=== PATIENT | male | born 1990 | race Caucasian/White ===

== ENCOUNTER → 2020-06-26 | Outpatient (CLI) | payer SELFPAY | LOC: M LABSMTC 10:48 | PROVIDERS: ATTEND Pediatrics | DX: Z20.822 Contact with and (suspected) exposure to COVID-19 (principal) ==

== ENCOUNTER → 2020-08-29 | Outpatient (REF) | payer OTHER ==
[2020-08-29 12:58] LABS: BASO % 0.5 % (0.0-1.0); EOS # 0.1 10^3/uL (0.0-0.5); EOS % 1.4 % (0.0-3.0); HEMATOCRIT 40.7 % (42.0-52.0); HEMOGLOBIN 12.8 g/dl (13.5-17.5); LYMPH # 2.3 10^3/uL (1.5-5.0); LYMPH % 35.7 % (24.0-44.0); MEAN CORPUSCULAR HEMOGLOBIN 28.4 pg (27.0-33.0); MEAN CORPUSCULAR HGB CONC 31.4 g/dl (32.0-36.5); MEAN CORPUSCULAR VOLUME 90.2 fl (80.0-96.0); MONO # 0.7 10^3/uL (0.0-0.8); MONO % 11.3 % (2.0-8.0); NEUTROPHILS # 3.3 10^3/uL (1.5-8.5); NEUTROPHILS % 50.9 % (36.0-66.0); PLATELET COUNT, AUTOMATED 337 10^3/uL (150-450); RED BLOOD COUNT 4.51 10^6/uL (4.30-6.10); WHITE BLOOD COUNT 6.5 10^3/uL (4.0-10.0)
[2020-08-29 13:48] LABS: ALBUMIN 3.1 GM/DL (3.2-5.2); BILIRUBIN,TOTAL 0.3 MG/DL (0.2-1.0); CALCIUM LEVEL 9.7 MG/DL (8.5-10.1); CHOLESTEROL RISK RATIO 13.787 (<5); CREATININE FOR GFR 1.53 MG/DL (0.70-1.30); FREE T4 0.94 NG/DL (0.76-1.46); GLOMERULAR FILTRATION RATE 56.4 (>60); POTASSIUM SERUM 4.6 MEQ/L (3.5-5.1); THYROID STIMULATING HORMONE 2.43 uIU/ML (0.358-3.740); TOTAL PROTEIN 6.5 GM/DL (6.4-8.2)
[2020-08-29 13:50] LABS: TOTAL 25(OH) VITAMIN D 12.1 NG/ML (30.0-100.0)
[2020-08-29 14:43] LABS: HEMOGLOBIN A1c 5.2 %
== END ==
LOC: M SFHCPLAZ 09:40
PROVIDERS: ATTEND Nurse Practitioner Family
DX: R53.83 Other fatigue (principal); Z13.1 Encounter for screening for diabetes mellitus; E78.5 Hyperlipidemia, unspecified; E55.9 Vitamin D deficiency, unspecified

== ENCOUNTER → 2021-01-04 | Outpatient (CLI) | payer OTHER ==
[2021-01-04 16:39] LABS: BASO % 0.4 % (0.0-1.0); EOS # 0.1 10^3/uL (0.0-0.5); EOS % 0.7 % (0.0-3.0); HEMATOCRIT 40.2 % (42.0-52.0); HEMOGLOBIN 13.1 g/dl (13.5-17.5); LYMPH # 2.3 10^3/uL (1.5-5.0); LYMPH % 27.8 % (24.0-44.0); MEAN CORPUSCULAR HEMOGLOBIN 29.2 pg (27.0-33.0); MEAN CORPUSCULAR HGB CONC 32.6 g/dl (32.0-36.5); MEAN CORPUSCULAR VOLUME 89.7 fl (80.0-96.0); MONO # 0.6 10^3/uL (0.0-0.8); MONO % 7.6 % (2.0-8.0); NEUTROPHILS # 5.2 10^3/uL (1.5-8.5); NEUTROPHILS % 63.1 % (36.0-66.0); PLATELET COUNT, AUTOMATED 344 10^3/uL (150-450); RED BLOOD COUNT 4.48 10^6/uL (4.30-6.10); WHITE BLOOD COUNT 8.2 10^3/uL (4.0-10.0)
[2021-01-04 17:18] LABS: BILIRUBIN,TOTAL 0.3 MG/DL (0.2-1.0); CALCIUM LEVEL 8.9 MG/DL (8.5-10.1); CHOLESTEROL RISK RATIO 10.285 (<5); CREATININE FOR GFR 1.58 MG/DL (0.70-1.30); GLOMERULAR FILTRATION RATE 54.4 (>60); POTASSIUM SERUM 4.9 MEQ/L (3.5-5.1); TOTAL PROTEIN 6.5 GM/DL (6.4-8.2)
[2021-01-04 17:21] LABS: TOTAL 25(OH) VITAMIN D 15.3 NG/ML (30.0-100.0)
== END ==
LOC: M PLALAB 12:55
PROVIDERS: ATTEND Nurse Practitioner Family
DX: N28.9 Disorder of kidney and ureter, unspecified (principal)

== ENCOUNTER → 2021-04-03 | Outpatient (REF) | payer OTHER ==
[2021-04-03 18:44] LABS: COMPLEMENT C3 125 MG/DL (90-180); COMPLEMENT C4 35 MG/DL (10-40)
[2021-04-03 19:31] LABS: HEPATITIS C VIRUS ABY INDEX < 0.0 INDEX (<0.8)
== END ==
LOC: M LAB REF 17:10
PROVIDERS: ATTEND Internal Medicine Nephrology
DX: N18.31 Chronic kidney disease, stage 3a (principal); R80.9 Proteinuria, unspecified; R31.9 Hematuria, unspecified

== ENCOUNTER → 2021-04-14 | Outpatient (CLI) | payer OTHER ==
--- NOTE | 2021-04-14 11:52 | REP ---
INDICATION: CKD STAGE 3A. COMPARISON: None. TECHNIQUE: Real-time sonographic evaluation of the kidneys with Doppler FINDINGS: Multiple ultrasonographic images of the right kidney show the right kidney to measure 9.7 x 5.8 x 5.8 cm. The renal cortical echotexture is mildly diffusely increased. There are no masses. There is preservation of corticomedullary differentiation. There is no hydronephrosis. There are no perinephric fluid collections. Multiple ultrasonographic images of the left kidney show the left kidney to measure 12.2 x 5.7 x 5.3 cm. The renal cortical echotexture is mildly diffusely increased. There are no masses. There is preservation of differentiation. There is no hydronephrosis. There are no perinephric fluid collections. IMPRESSION: Mildly diffusely increased renal cortical echoes suggesting medical renal disease. <Electronically signed by Kris Díaz > 04/14/21 [id number]
== END ==
LOC: M RAD 10:01
PROVIDERS: ATTEND Internal Medicine Nephrology
DX: N18.31 Chronic kidney disease, stage 3a (principal)

== ENCOUNTER → 2021-04-19 | Outpatient (REF) | payer OTHER ==
[2021-04-19 18:45] LABS: TOTAL VOLUME, URINE 2660 ML
[2021-04-19 19:33] LABS: TOTAL PROTEIN 24 HOUR URINE 9719.6 MG/24HR (50-150); URINE TOTAL PROTEIN 365.4 MG/DL (0-12)
== END ==
LOC: M LAB REF 18:14
PROVIDERS: ATTEND Internal Medicine Nephrology
DX: R80.9 Proteinuria, unspecified (principal)

== ENCOUNTER → 2021-05-15 | Outpatient (REF) | payer OTHER ==
[~2021-05-15] MED LIST: ATOR80TA59 PO; LOSA50TA28 PO; OMEP40CA4 PO
[2021-05-15 13:33] LABS: INR 0.95
[2021-05-15 13:34] LABS: PARTIAL THROMBOPLASTIN TIME 33.8 SECONDS (25.9-37.0)
== END ==
LOC: M LAB REF 13:02
PROVIDERS: ATTEND Internal Medicine Nephrology
DX: R31.9 Hematuria, unspecified (principal)

== ENCOUNTER → 2021-06-20 | Outpatient (POV) | payer OTHER ==
[~2021-06-20] VITALS: Ht 172.7 cm; Wt 116.4 kg
[~2021-06-20] MED LIST changes: -LOSA50TA28 PO; +LOSA50TA88 PO
[2021-06-20 09:05] VITALS: BP 176/102
== END ==
LOC: M IRPOV 08:57
PROVIDERS: ATTEND Radiology Diagnostic Radiology
DX: R80.8 Other proteinuria (principal)

== ENCOUNTER → 2021-06-28 | Outpatient (CLI) | payer OTHER ==
[~2021-06-28] MED LIST changes: +LIDOCAINE 1% MDV 20ML VIAL As Ordered ONE; +LOSA50TA28 PO; -LOSA50TA88 PO; +MIDAZOLAM INJ 2MG/2ML VIAL (J2250 PER 1MG) As Ordered ONE; +diphenhydrAMINE 50MG/ML VIAL (J1200) As Ordered ONE; +fentaNYL 100 MCG/2 ML INJECTION (J3010) As Ordered ONE
[2021-06-28 12:00] VITALS: BP 165/94
== END ==
LOC: M IRPRO 08:52
PROVIDERS: ATTEND Radiology Diagnostic Radiology
DX: N04.8 Nephrotic syndrome with other morphologic changes (principal); R80.9 Proteinuria, unspecified; Z79.899 Other long term (current) drug therapy
CPT/HCPCS: 50200; 77012; 88300; 99152; 99153; J1200; J2250; J3010

== ENCOUNTER → 2022-02-16 | Outpatient (CLI) | payer OTHER ==
[~2022-02-16] MED LIST changes: -LIDOCAINE 1% MDV 20ML VIAL As Ordered ONE; -MIDAZOLAM INJ 2MG/2ML VIAL (J2250 PER 1MG) As Ordered ONE; -diphenhydrAMINE 50MG/ML VIAL (J1200) As Ordered ONE; -fentaNYL 100 MCG/2 ML INJECTION (J3010) As Ordered ONE
[2022-02-16 14:41] LABS: BASO % 0.4 % (0.0-1.0); EOS % 0.6 % (0.0-3.0); HEMATOCRIT 35.7 % (42.0-52.0); HEMOGLOBIN 11.8 g/dl (13.5-17.5); LYMPH # 1.7 10^3/uL (1.5-5.0); MEAN CORPUSCULAR HEMOGLOBIN 29.6 pg (27.0-33.0); MEAN CORPUSCULAR HGB CONC 33.1 g/dl (32.0-36.5); MEAN CORPUSCULAR VOLUME 89.7 fl (80.0-96.0); MONO # 0.6 10^3/uL (0.0-0.8); MONO % 8.5 % (2.0-8.0); NEUTROPHILS # 4.6 10^3/uL (1.5-8.5); NEUTROPHILS % 66.2 % (36.0-66.0); PLATELET COUNT, AUTOMATED 307 10^3/uL (150-450); RED BLOOD COUNT 3.98 10^6/uL (4.30-6.10); WHITE BLOOD COUNT 6.9 10^3/uL (4.0-10.0)
[2022-02-16 15:29] LABS: BILIRUBIN,TOTAL 0.4 MG/DL (0.2-1.0); CALCIUM LEVEL 9.1 MG/DL (8.5-10.1); CHOLESTEROL RISK RATIO 10.818 (<5); CREATININE FOR GFR 2.09 MG/DL (0.70-1.30); FREE T4 1.05 NG/DL (0.76-1.46); GLOMERULAR FILTRATION RATE 38.9 (>60); POTASSIUM SERUM 4.4 MEQ/L (3.5-5.1); THYROID STIMULATING HORMONE 1.8 uIU/ML (0.358-3.740); TOTAL PROTEIN 6.2 GM/DL (6.4-8.2)
[2022-02-16 15:59] LABS: TOTAL 25(OH) VITAMIN D 10.4 NG/ML (30.0-100.0)
[2022-02-16 16:02] LABS: HEMOGLOBIN A1c 5.3 %
== END ==
LOC: M PLALAB 11:02
PROVIDERS: ATTEND Nurse Practitioner Family
DX: D64.9 Anemia, unspecified (principal); E78.5 Hyperlipidemia, unspecified; E55.9 Vitamin D deficiency, unspecified

== ENCOUNTER 2023-06-15 15:24 | Inpatient (IN) | payer OTHER ==
[~2023-06-15] VITALS: Ht 172.7 cm; Wt 111.2 kg
[2023-06-15] MEDS ORDERED: MINO10TA PO (15:40)
[2023-06-15] MEDS ORDERED: AMLO1TAB24 PO (15:40)
[2023-06-15] MEDS ORDERED: SODI650T PO (15:40)
[2023-06-15] MEDS ORDERED: CALC1CAP31 PO (15:40)
[2023-06-15] MEDS ORDERED: FERR325T19 (15:40)
[2023-06-15] MEDS ORDERED: FURO20TA2 PO (15:40)
[2023-06-15 18:08] LABS: VENOUS BASE EXCESS -6.1 (-2.0-2.0); VENOUS HCO3 20.3 MMOL/L (23.0-27.0); VENOUS O2 SATURATION 78.4 % (60.0-80.0); VENOUS PARTIAL PRESSURE CO2 43.9 mmHg (38.0-50.0); VENOUS PH 7.283 UNITS (7.330-7.430); VENOUS STANDARD HCO3 19.2 MMOL/L; VENOUS TOTAL CO2 21.7 MMOL/L (24.0-28.0)
[2023-06-15 18:21] LABS: BASO % 0.2 % (0.0-1.0); EOS # 0.1 10^3/uL (0.0-0.5); HEMOGLOBIN 8.6 g/dl (13.5-17.5); LYMPH # 1.6 10^3/uL (1.5-5.0); LYMPH % 16.8 % (24.0-44.0); MEAN CORPUSCULAR HEMOGLOBIN 28.7 pg (27.0-33.0); MEAN CORPUSCULAR HGB CONC 31.9 g/dl (32.0-36.5); MONO # 0.9 10^3/uL (0.0-0.8); MONO % 9.3 % (2.0-8.0); NEUTROPHILS # 6.7 10^3/uL (1.5-8.5); NEUTROPHILS % 72.4 % (36.0-66.0); PLATELET COUNT, AUTOMATED 330 10^3/uL (150-450); WHITE BLOOD COUNT 9.2 10^3/uL (4.0-10.0)
[2023-06-15 18:46] LABS: CPK CREATINE PHOSPHOKINASE 119 U/L (46-171)
[2023-06-15 18:49] LABS: ALBUMIN 3.4 G/DL (3.2-5.2); ALKALINE PHOSPHATASE 39 U/L (46-116); ALT/SGPT 19 U/L (7.0-40); AST/SGOT 13 U/L (<34); BILIRUBIN,DIRECT < 0.1 MG/DL (<0.4); BILIRUBIN,TOTAL 0.3 MG/DL (0.3-1.2); BLOOD UREA NITROGEN 65 MG/DL (9-23); CALCIUM LEVEL 8.1 MG/DL (8.5-10.1); CARBON DIOXIDE LEVEL 22 MMOL/L (20-31); CHLORIDE LEVEL 111 MMOL/L (98-107); CK-MB VALUE MASS < 1.0 NG/ML (<3.6); CREATININE FOR GFR 6.29 MG/DL (0.70-1.30); GLOMERULAR FILTRATION RATE 10.8 (>60); GLUCOSE, FASTING 95 MG/DL (60-100); MB/CK RELATIVE INDEX 0.84 (< OR =4); POTASSIUM SERUM 4.4 MMOL/L (3.5-5.1); SODIUM LEVEL 143 MMOL/L (136-145); THYROXINE (T4) 9.4 UG/DL (4.5-10.9); TOTAL PROTEIN 6.5 G/DL (5.7-8.2)
[2023-06-15] MEDS ORDERED: hydrALAZINE 20MG/ML 1ML VIAL IV STA ×2 (20:14→21:28)
[2023-06-15 20:58] LABS: MB/CK RELATIVE INDEX 0.93 (< OR =4)
[2023-06-15] MEDS ORDERED: HOME MED LIST COMPLETE! XX SCH (21:05)
[2023-06-15 21:22] LABS: APPEARANCE, URINE CLEAR (CLEAR); BACTERIA, URINE AUTO NEGATIVE (NEGATIVE); BILIRUBIN, URINE AUTO NEGATIVE (NEGATIVE); BLOOD, URINE BLOOD 1+ (NEGATIVE); COLOR, URINE STRAW (YELLOW); GLUCOSE, URINE (UA) AUTO NEGATIVE (NEGATIVE); KETONE, URINE AUTO NEGATIVE (NEGATIVE); LEUKOCYTE ESTERASE, URINE AUTO NEGATIVE (NEGATIVE); NITRITE, URINE AUTO NEGATIVE (NEGATIVE); PROTEIN, URINE AUTO 3+ mg/dL (NEGATIVE); RBC, URINE AUTO 13 /HPF (0-3); SPECIFIC GRAVITY URINE AUTO 1.012 (1.002-1.035); SQUAMOUS EPITHELIAL CELL UR AU 0 /HPF (0-6); UROBILINOGEN, URINE AUTO 0.2 mg/dL (0.0-2.0); WBC, URINE AUTO 2 /HPF (0-3)
[2023-06-15] MEDS ORDERED: cloNIDine 0.2 MG TAB PO ONE (22:00)
[2023-06-15 22:20] VITALS: BP 238/112; TEMP 98.3; O2SAT 96
[2023-06-15] MEDS ORDERED: ACETAMINOPHEN TAB 650MG DOSE (2X325MG) PO ONE (23:00)
[2023-06-15 23:24] VITALS: BP 190/90
[2023-06-16] VITALS (12 sets, daily range): BP systolic 130–180; BP diastolic 63–106; TEMP 98.1–98.6; O2SAT 94–98
[2023-06-16] MEDS: HEPARIN SOD (PORCINE) 5000UNITS/ML 1ML VIAL/SYRINGE SC SCH ×3 (05:31→20:46)
[2023-06-16 06:02] LABS: HEMATOCRIT 23.3 % (42.0-52.0); HEMOGLOBIN 7.6 g/dl (13.5-17.5)
[2023-06-16 06:21] LABS: ERYTHROCYTE SEDIMENTATION RATE 38 mm/hr (0-15)
[2023-06-16 06:37] LABS: ALBUMIN 2.8 G/DL (3.2-5.2); CREATININE FOR GFR 6.43 MG/DL (0.70-1.30); FERRITIN 75.6 NG/ML (10.5-307.3); GLOMERULAR FILTRATION RATE 10.6 (>60); HDL CHOLESTEROL 24.9 MG/DL (>40); LDL CHOLESTEROL 213.7 MG/DL (<100); NON-HDL-C 249.1 MG/DL; PHOSPHORUS LEVEL 6.2 MG/DL (2.5-4.9); POTASSIUM SERUM 4.6 MMOL/L (3.5-5.1)
[2023-06-16 08:41] LABS: HEMATOCRIT 24.1 % (42.0-52.0); HEMOGLOBIN 7.6 g/dl (13.5-17.5)
[2023-06-16 08:55] LABS: PERCENT SATURATION 7.5 % (19.7-50.0)
[2023-06-16 08:58] LABS: FERRITIN 84.4 NG/ML (10.5-307.3)
[2023-06-16] MEDS: ATORVASTATIN 20 MG TAB PO SCH (10:09)
[2023-06-16] MEDS: CALCITRIOL 0.25 MCG CAP (S0169) PO SCH (10:09)
[2023-06-16] MEDS: OMEPRAZOLE 20MG CAP PO SCH (10:09)
[2023-06-16] MEDS: FUROSEMIDE 100MG/10ML VIAL IV SCH ×2 (11:00→17:05)
[2023-06-16] MEDS: **hydrALAZINE** 50 MG TAB PO SCH ×3 (12:04→23:44)
[2023-06-16] MEDS: cloNIDine 0.1MG TABLET PO PRN (12:06)
[2023-06-16 16:29] LABS: CREATININE,RANDOM URINE 87.6 MG/DL
[2023-06-16 18:55] LABS: HEMATOCRIT 30.1 % (42.0-52.0)
[2023-06-16] MEDS: CARVedilol 12.5 MG TAB PO SCH (20:45)
[2023-06-17] VITALS (8 sets, daily range): BP systolic 124–172; BP diastolic 67–90; TEMP 97–98.6; O2SAT 92–97
[2023-06-17 00:43] LABS: HEMATOCRIT 26.6 % (42.0-52.0); HEMOGLOBIN 8.7 g/dl (13.5-17.5)
[2023-06-17] MEDS ORDERED: MAALOX 30 ML SUSP *UDC PO ONE (04:00)
[2023-06-17] MEDS ORDERED: MAALOX 30 ML SUSP *UDC PO PRN (04:05)
[2023-06-17 04:36] LABS: HEMATOCRIT 25.5 % (42.0-52.0); HEMOGLOBIN 8.6 g/dl (13.5-17.5)
[2023-06-17 04:53] LABS: ALBUMIN 2.8 G/DL (3.2-5.2); CALCIUM LEVEL 8.2 MG/DL (8.5-10.1); CK-MB VALUE MASS 1.2 NG/ML (<3.6); CREATININE FOR GFR 6.45 MG/DL (0.70-1.30); GLOMERULAR FILTRATION RATE 10.5 (>60); MAGNESIUM LEVEL 1.8 MG/DL (1.8-2.4); MB/CK RELATIVE INDEX 1.3 (< OR =4); PHOSPHORUS LEVEL 5.8 MG/DL (2.5-4.9); POTASSIUM SERUM 4.4 MMOL/L (3.5-5.1)
[2023-06-17] MEDS: HEPARIN SOD (PORCINE) 5000UNITS/ML 1ML VIAL/SYRINGE SC SCH ×3 (05:16→21:18)
[2023-06-17] MEDS: **hydrALAZINE** 50 MG TAB PO SCH ×4 (05:17→23:59)
[2023-06-17] MEDS ORDERED: SUCRALFATE SUSP 1GM/10ML UD PO SCH (07:30)
[2023-06-17] MEDS: ATORVASTATIN 20 MG TAB PO SCH (08:52)
[2023-06-17] MEDS: FUROSEMIDE 100MG/10ML VIAL IV SCH (08:52)
[2023-06-17] MEDS: OMEPRAZOLE 20MG CAP PO SCH (08:52)
[2023-06-17] MEDS: CALCITRIOL 0.25 MCG CAP (S0169) PO SCH (08:53)
[2023-06-17] MEDS: CARVedilol 12.5 MG TAB PO SCH ×2 (08:53→20:33)
[2023-06-17 09:34] LABS: CK-MB VALUE MASS 1.3 NG/ML (<3.6)
[2023-06-17 09:35] LABS: MB/CK RELATIVE INDEX 1.56 (< OR =4)
[2023-06-17] MEDS ORDERED: FERRIC CARBOXYMALTOSE INJ 750 MG, VIAL MATE ADAPTER 1 EACH in NS 250 ML IV ONE (12:00)
[2023-06-17] MEDS: (RENVELA) SEVELAMER **CARBONate** 800 MG TAB PO SCH ×2 (12:43→17:22)
[2023-06-17] MEDS: cloNIDine 0.1MG TABLET PO PRN (13:42)
[2023-06-18] VITALS (7 sets, daily range): BP systolic 158–179; BP diastolic 74–85; TEMP 97.4–98.1; O2SAT 94–98
[2023-06-18] MEDS: **hydrALAZINE** 50 MG TAB PO SCH ×3 (05:44→18:15)
[2023-06-18] MEDS: HEPARIN SOD (PORCINE) 5000UNITS/ML 1ML VIAL/SYRINGE SC SCH ×3 (05:44→22:48)
[2023-06-18 07:10] LABS: ALBUMIN 2.7 G/DL (3.2-5.2); CALCIUM LEVEL 8.4 MG/DL (8.5-10.1); CREATININE FOR GFR 6.44 MG/DL (0.70-1.30); GLOMERULAR FILTRATION RATE 10.6 (>60); PHOSPHORUS LEVEL 5.8 MG/DL (2.5-4.9)
[2023-06-18 07:17] LABS: BASO % 0.3 % (0.0-1.0); EOS # 0.1 10^3/uL (0.0-0.5); EOS % 1.2 % (0.0-3.0); HEMATOCRIT 27.2 % (42.0-52.0); LYMPH # 1.7 10^3/uL (1.5-5.0); LYMPH % 19.1 % (24.0-44.0); MEAN CORPUSCULAR HEMOGLOBIN 29.7 pg (27.0-33.0); MEAN CORPUSCULAR HGB CONC 33.1 g/dl (32.0-36.5); MEAN CORPUSCULAR VOLUME 89.8 fl (80.0-96.0); MONO # 0.8 10^3/uL (0.0-0.8); MONO % 9.5 % (2.0-8.0); NEUTROPHILS # 6.1 10^3/uL (1.5-8.5); NEUTROPHILS % 69.6 % (36.0-66.0); PLATELET COUNT, AUTOMATED 306 10^3/uL (150-450); RED BLOOD COUNT 3.03 10^6/uL (4.30-6.10); WHITE BLOOD COUNT 8.8 10^3/uL (4.0-10.0)
[2023-06-18] MEDS: CALCITRIOL 0.25 MCG CAP (S0169) PO SCH (10:24)
[2023-06-18] MEDS: OMEPRAZOLE 20MG CAP PO SCH (10:24)
[2023-06-18] MEDS: FUROSEMIDE 20 MG TAB PO SCH (10:24)
[2023-06-18] MEDS: ATORVASTATIN 20 MG TAB PO SCH (10:25)
[2023-06-18] MEDS: (RENVELA) SEVELAMER **CARBONate** 800 MG TAB PO SCH ×3 (10:25→18:13)
[2023-06-18] MEDS: CARVedilol 12.5 MG TAB PO SCH ×2 (10:26→20:19)
[2023-06-18] MEDS: SODIUM CHLORIDE NASAL 0.65% SPRAY BTL (OCEAN) SCH ×3 (12:42→20:19)
[2023-06-18] MEDS ORDERED: BISACODYL 5MG TAB PO ONE (12:45)
[2023-06-18] MEDS: SENOKOT S TAB PO SCH ×2 (14:19→20:18)
[2023-06-18] MEDS: cloNIDine 0.1MG TABLET PO PRN (18:15)
[2023-06-19] VITALS: BP 188/86; TEMP 99; O2SAT 94
[2023-06-19] MEDS: **hydrALAZINE** 50 MG TAB PO SCH ×2 (00:32→05:36)
[2023-06-19 04:00] VITALS: BP 171/86; TEMP 98.7; O2SAT 92
[2023-06-19] MEDS: HEPARIN SOD (PORCINE) 5000UNITS/ML 1ML VIAL/SYRINGE SC SCH (05:36)
[2023-06-19 06:55] LABS: ALBUMIN 2.8 G/DL (3.2-5.2); CALCIUM LEVEL 8.5 MG/DL (8.5-10.1); CREATININE FOR GFR 6.44 MG/DL (0.70-1.30); GLOMERULAR FILTRATION RATE 10.6 (>60); PHOSPHORUS LEVEL 5.9 MG/DL (2.5-4.9); POTASSIUM SERUM 3.9 MMOL/L (3.5-5.1)
[2023-06-19 07:37] VITALS: BP 180/86; TEMP 98.7; O2SAT 96
[2023-06-19] MEDS: ATORVASTATIN 20 MG TAB PO SCH (07:56)
[2023-06-19] MEDS: FUROSEMIDE 20 MG TAB PO SCH (07:56)
[2023-06-19] MEDS: OMEPRAZOLE 20MG CAP PO SCH (07:56)
[2023-06-19] MEDS: (RENVELA) SEVELAMER **CARBONate** 800 MG TAB PO SCH ×2 (07:56→12:21)
[2023-06-19] MEDS: SODIUM CHLORIDE NASAL 0.65% SPRAY BTL (OCEAN) SCH (07:57)
[2023-06-19] MEDS: CALCITRIOL 0.25 MCG CAP (S0169) PO SCH (07:57)
[2023-06-19] MEDS: SENOKOT S TAB PO SCH (07:57)
[2023-06-19] MEDS: CARVedilol 12.5 MG TAB PO SCH (07:57)
[2023-06-19] MEDS: cloNIDine 0.1MG TABLET PO PRN (09:45)
[2023-06-19] MEDS ORDERED: FURO20TA2 PO (10:55)
[2023-06-19] MEDS ORDERED: CARV12.5 PO (10:55)
[2023-06-19] MEDS ORDERED: AMLO1TAB25 PO (10:55)
[2023-06-19] MEDS ORDERED: HYDR100T PO (10:55)
[2023-06-19] MEDS ORDERED: RENV2TAB PO (10:55)
[2023-06-19 11:11] VITALS: BP 142/72
[2023-06-19] MEDS ORDERED: **hydrALAZINE HCL** 25 MG TAB PO SCH (12:00)
[2023-06-19 12:20] VITALS: BP 145/86
== END 2023-06-19 13:20 | disposition home or self-care (01) | DRG 462 ==
LOC: M ED 15:24 → M ED INP 21:30 → ENRESERV 21:49 → M PCU 22:19
PROVIDERS: ADMIT Internal Medicine; ATTEND Internal Medicine
PROC: 30233N1 Transfusion of Nonautologous Red Blood Cells into Peripheral Vein, Percutaneous Approach (ICD-10-PCS; principal; 2023-06-16)
DX: N02.B9 Other recurrent and persistent immunoglobulin A nephropathy (principal); N18.6 End stage renal disease; E87.20 Acidosis, unspecified; I12.0 Hypertensive chronic kidney disease with stage 5 chronic kidney disease or end stage renal disease; E87.70 Fluid overload, unspecified; E66.01 Morbid (severe) obesity due to excess calories; I16.0 Hypertensive urgency; D63.1 Anemia in chronic kidney disease; E78.00 Pure hypercholesterolemia, unspecified; Z79.899 Other long term (current) drug therapy; Z88.2 Allergy status to sulfonamides; H53.8 Other visual disturbances; Z68.38 Body mass index [BMI] 38.0-38.9, adult; R07.89 Other chest pain

== ENCOUNTER → 2023-07-04 | Outpatient (REF) | payer OTHER ==
[~2023-07-04] MED LIST changes: +AMLO1TAB24 PO; +AMLO1TAB25 PO; +CALC1CAP31 PO; +CARV12.5 PO; +FERR325T19; +FURO20TA2 PO; +HYDR100T PO; +MINO10TA PO; +RENV2TAB PO; +SODI650T PO
[2023-07-04 19:11] LABS: ALBUMIN 3.5 G/DL (3.2-5.2); CALCIUM LEVEL 8.8 MG/DL (8.5-10.1); CREATININE FOR GFR 6.32 MG/DL (0.70-1.30); GLOMERULAR FILTRATION RATE 10.8 (>60); PHOSPHORUS LEVEL 6.3 MG/DL (2.5-4.9); POTASSIUM SERUM 4.6 MMOL/L (3.5-5.1)
[2023-07-04 19:12] LABS: PTH INTACT 292.5 PG/ML (18.5-88.0)
[2023-07-10 10:43] LABS: HEPATITIS B SURFACE ANTIBODY POSITIVE (POSITIVE)
[2023-07-10 11:17] LABS: HEPATITIS C VIRUS ABY INDEX < 0.02 INDEX (<0.8)
== END ==
LOC: M LAB REF 17:32
PROVIDERS: ATTEND Internal Medicine Nephrology
DX: N18.31 Chronic kidney disease, stage 3a (principal); D63.1 Anemia in chronic kidney disease; N25.81 Secondary hyperparathyroidism of renal origin

== ENCOUNTER → 2023-11-28 | Outpatient (REF) | LOC: EDSTATUS 10-16 09:15 → M RAD 08:52 | PROVIDERS: ATTEND Transplant Surgery | DX: Z01.818 Encounter for other preprocedural examination (principal); K76.0 Fatty (change of) liver, not elsewhere classified; R93.429 Abnormal radiologic findings on diagnostic imaging of unspecified kidney ==

== ENCOUNTER → 2024-01-01 | Outpatient (CLI) | payer MEDICARE | LOC: M RAD 11:32 | PROVIDERS: ATTEND Transplant Surgery | DX: Z01.818 Encounter for other preprocedural examination (principal); N18.6 End stage renal disease; Z53.9 Procedure and treatment not carried out, unspecified reason ==

== ENCOUNTER → 2024-01-10 | Outpatient (CLI) | payer MEDICARE ==
[2024-01-10 14:32] LABS: HEMOGLOBIN A1c 4.9 % (4.0-6.0)
[2024-01-10 14:54] LABS: THYROID STIMULATING HORMONE 3.486 uIU/ML (0.55-4.78)
[2024-01-10 14:56] LABS: FREE T4 1.17 NG/DL (0.89-1.76)
[2024-01-10 15:14] LABS: ALBUMIN 3.8 G/DL (3.2-5.2); ALKALINE PHOSPHATASE 37 U/L (46-116); ALT/SGPT 11 U/L (7.0-40); AST/SGOT < 8 U/L (<34); BILIRUBIN,TOTAL 0.3 MG/DL (0.3-1.2); BLOOD UREA NITROGEN 91 MG/DL (9-23); CALCIUM LEVEL 9.2 MG/DL (8.5-10.1); CARBON DIOXIDE LEVEL 22 MMOL/L (20-31); CHLORIDE LEVEL 107 MMOL/L (98-107); CHOLESTEROL LEVEL 217 MG/DL (<200); CHOLESTEROL RISK RATIO 9.43 (<5); CREATININE FOR GFR 9.06 MG/DL (0.70-1.30); GLOMERULAR FILTRATION RATE 7.1 (>60); GLUCOSE, FASTING 114 MG/DL (60-100); LDL CHOLESTEROL 159.6 MG/DL (<100); POTASSIUM SERUM 3.7 MMOL/L (3.5-5.1); SODIUM LEVEL 138 MMOL/L (136-145); TOTAL PROTEIN 6.8 G/DL (5.7-8.2); TRIGLYCERIDES LEVEL 172 MG/DL (<150)
== END ==
LOC: M PLALAB 11:20
PROVIDERS: ATTEND Nurse Practitioner Family
DX: E78.2 Mixed hyperlipidemia (principal); I15.0 Renovascular hypertension; Z79.899 Other long term (current) drug therapy

== ENCOUNTER → 2024-02-12 | Outpatient (CLI) | payer MEDICARE | LOC: M RAD 14:49 | PROVIDERS: ATTEND Internal Medicine Nephrology | DX: T85.611A Breakdown (mechanical) of intraperitoneal dialysis catheter, initial encounter (principal) ==

== ENCOUNTER → 2024-10-15 | Outpatient (REF) | payer MEDICARE, MEDICAID | LOC: EDSTATUS 10-07 12:00 → M RAD 16:57 | PROVIDERS: ATTEND Internal Medicine Nephrology | DX: Z01.818 Encounter for other preprocedural examination (principal); N18.6 End stage renal disease ==

== ENCOUNTER 2024-12-16 02:25 | Emergency (ER) | payer MEDICAID, MEDICARE ==
[~2024-12-16] VITALS: Ht 172.7 cm; Wt 92.3 kg
[2024-12-16 04:34] LABS: BASO # 0.0 10^3/uL (0.0-0.2); BASO % 0.4 % (0.0-1.0); EOS # 0.2 10^3/uL (0.0-0.5); EOS % 2.8 % (0.0-3.0); LYMPH # 1.2 10^3/uL (1.5-5.0); LYMPH % 14.5 % (24.0-44.0); MONO # 0.9 10^3/uL (0.0-0.8); MONO % 11.0 % (2.0-8.0); NEUTROPHILS # 5.6 10^3/uL (1.5-8.5); NEUTROPHILS % 71.0 % (36.0-66.0); PLATELET COUNT, AUTOMATED 282 10^3/uL (150-450)
[2024-12-16 04:56] LABS: ALT/SGPT 18 U/L (7.0-40); AST/SGOT 10 U/L (<34); CALCIUM LEVEL 10.2 MG/DL (8.5-10.1); CARBON DIOXIDE LEVEL 24 MMOL/L (20-31); CHLORIDE LEVEL 94 MMOL/L (98-107); CREATININE FOR GFR 10.31 MG/DL (0.70-1.30); GLOMERULAR FILTRATION RATE 6.1 (>60); POTASSIUM SERUM 3.4 MMOL/L (3.5-5.1); SODIUM LEVEL 135 MMOL/L (136-145)
[2024-12-16 08:09] LABS: KETONE, URINE AUTO RFX NEGATIVE (NEGATIVE); LEUKOCYTE ESTERASE UR AUTO RFX NEGATIVE (NEGATIVE); NITRITE, URINE AUTO RFX NEGATIVE (NEGATIVE); RBC, URINE AUTO RFX 1 /HPF (0-3); SQUAM EPITHELIAL CELL UR AURFX 0 /HPF (0-6); WBC, URINE AUTO RFX 0 /HPF (0-3)
[2024-12-16] MEDS ORDERED: METO5TAB2 PO (09:56)
[2024-12-16] MEDS ORDERED: HYDR100T PO (09:56)
[2024-12-16] MEDS ORDERED: CARV25TA PO (09:56)
[2024-12-16] MEDS ORDERED: AMLO-751 PO (09:56)
[2024-12-16] MEDS ORDERED: ERGO500029 PO (09:56)
[2024-12-16] MEDS ORDERED: SEVE800T3 PO (09:56)
[2024-12-16] MEDS ORDERED: HOME MED LIST COMPLETE! XX SCH (10:00)
[2024-12-16 12:14] LABS: APPEARANCE, BODY FLUID CLEAR (CLEAR); PERITONEAL DIALYSATE FL COLOR COLORLESS (COLORLESS); SOURCE, BODY FLUID PERITONEAL DIALYSATE
[2024-12-16 12:22] LABS: SOURCE, BODY FLUID ALBUMIN P.DIALYSIS
[2024-12-16 12:28] LABS: SOURCE, BODY FLUID GLUCOSE P.DIALYSIS
[2024-12-16] MEDS: FUROSEMIDE 20 MG TAB PO ONE (13:48)
[2024-12-16] MEDS: amLODIPine 10 MG TAB PO ONE (13:49)
[2024-12-16 13:50] VITALS: BP 214/95
[2024-12-16] MEDS: **hydrALAZINE** 50 MG TAB PO ONE (13:50)
[2024-12-16 14:26] LABS: SOURCE, BODY FLUID TOT PROTEIN P.DIALYSIS
[2024-12-16 14:30] VITALS: BP 221/98; O2SAT 98
[2024-12-16 14:37] VITALS: TEMP 97.7
== END 2024-12-16 14:45 | disposition home or self-care (01) ==
LOC: M ED 02:25
DX: R10.9 Unspecified abdominal pain (principal); N18.6 End stage renal disease; I10 Essential (primary) hypertension; E78.5 Hyperlipidemia, unspecified; Z88.2 Allergy status to sulfonamides; Z79.02 Long term (current) use of antithrombotics/antiplatelets; Z79.899 Other long term (current) drug therapy

== ENCOUNTER 2024-12-26 21:43 | Inpatient (IN) | payer MEDICARE ==
[~2024-12-26] VITALS: Ht 170.2 cm; Wt 90.5 kg
[~2024-12-26 21:43] MED LIST changes: +AMLO-751 PO; +CARV25TA PO; +ERGO500029 PO; +METO5TAB2 PO; +SEVE800T3 PO
[2024-12-27 02:01] LABS: BASO # 0.0 10^3/uL (0.0-0.2); BASO % 0.5 % (0.0-1.0); EOS # 0.2 10^3/uL (0.0-0.5); EOS % 1.9 % (0.0-3.0); LYMPH # 1.7 10^3/uL (1.5-5.0); LYMPH % 20.1 % (24.0-44.0); MONO # 1.0 10^3/uL (0.0-0.8); MONO % 12.2 % (2.0-8.0); NEUTROPHILS # 5.4 10^3/uL (1.5-8.5); NEUTROPHILS % 64.9 % (36.0-66.0); PLATELET COUNT, AUTOMATED 325 10^3/uL (150-450)
[2024-12-27 02:18] LABS: KETONE, URINE AUTO RFX NEGATIVE (NEGATIVE); LEUKOCYTE ESTERASE UR AUTO RFX NEGATIVE (NEGATIVE); NITRITE, URINE AUTO RFX NEGATIVE (NEGATIVE); RBC, URINE AUTO RFX 3 /HPF (0-3); SQUAM EPITHELIAL CELL UR AURFX 0 /HPF (0-6); WBC, URINE AUTO RFX 0 /HPF (0-3)
[2024-12-27 02:34] LABS: ALT/SGPT 36 U/L (7.0-40); AST/SGOT 13 U/L (<34); CALCIUM LEVEL 10.6 MG/DL (8.5-10.1); CARBON DIOXIDE LEVEL 24 MMOL/L (20-31); CHLORIDE LEVEL 95 MMOL/L (98-107); CREATININE FOR GFR 12.36 MG/DL (0.70-1.30); GLOMERULAR FILTRATION RATE 4.9 (>60); POTASSIUM SERUM 4.2 MMOL/L (3.5-5.1); SODIUM LEVEL 135 MMOL/L (136-145)
[2024-12-27 02:58] LABS: CK-MB VALUE MASS < 1.0 NG/ML (<3.6)
[2024-12-27 02:59] LABS: CPK CREATINE PHOSPHOKINASE 40 U/L (46-171)
[2024-12-27] MEDS: MORPHINE 2 MG/ML 1 ML VIAL IV ONE (05:42)
[2024-12-27 08:09] LABS: CK-MB VALUE MASS 1.1 NG/ML (<3.6)
[2024-12-27 08:14] LABS: CPK CREATINE PHOSPHOKINASE 54.0 U/L (46-171); MB/CK RELATIVE INDEX 2.03 (< OR =4)
[2024-12-27 08:28] LABS: APPEARANCE, BODY FLUID HAZY (CLEAR); PERITONEAL FL COLOR PALE YELLOW (COLORLESS); SOURCE, BODY FLUID PERITONEAL
[2024-12-27] MEDS: DOCUSATE SODIUM 100 MG CAPSULE PO SCH (09:00)
[2024-12-27] MEDS ORDERED: HOME MED LIST COMPLETE! XX SCH (09:10)
[2024-12-27 09:21] LABS: SOURCE, BODY FLUID GLUCOSE PERITONEAL
[2024-12-27] MEDS: VANCOMYCIN HCL XX ONE (11:53)
[2024-12-27] MEDS: CEFEPIME 1 GM VIAL IP ONE (11:53)
[2024-12-27 12:52] LABS: APPEARANCE, BODY FLUID CLEAR (CLEAR); PERITONEAL FL COLOR COLORLESS (COLORLESS); SOURCE, BODY FLUID PERITONEAL
[2024-12-27] MEDS: OMEPRAZOLE 20MG CAP PO SCH (13:19)
[2024-12-27] MEDS: FUROSEMIDE 20 MG TAB PO SCH (13:20)
[2024-12-27] MEDS: amLODIPine 10 MG TAB PO SCH (13:20)
[2024-12-27] MEDS: ATORVASTATIN 20 MG TAB PO SCH (13:20)
[2024-12-27] MEDS ORDERED: traMADol 50 MG TAB PO PRN (13:40)
[2024-12-27] MEDS ORDERED: MOM 30 ML SUSPENSION UDC PO PRN (13:45)
[2024-12-27] MEDS: **hydrALAZINE** 50 MG TAB PO SCH (14:25)
[2024-12-27 14:44] LABS: INR 1.0
[2024-12-27 14:57] VITALS: TEMP 97.6; O2SAT 100
[2024-12-27 15:25] VITALS: BP 192/90
[2024-12-27] MEDS: SEVELAMER *CARBONate* 800 MG TAB PO SCH (16:06)
[2024-12-27] MEDS: hydrALAZINE 20 MG/ML 1 ML VIAL IV PRN (16:06)
[2024-12-27] MEDS: CALCITRIOL 0.25 MCG CAP (S0169) PO SCH (16:07)
[2024-12-27 16:20] VITALS: BP 168/83
[2024-12-27 19:20] VITALS: BP 175/89; TEMP 97.6; O2SAT 98
[2024-12-27] MEDS: METOCLOPRAMIDE 5 MG TAB PO SCH (19:23)
[2024-12-27] MEDS: SENNA 8.6 MG TAB PO SCH (19:24)
[2024-12-27] MEDS: CEFEPIME 1 GM VIAL IP SCH (21:57)
[2024-12-27] MEDS: HEPARIN SOD 5000 UNITS/ML 1 ML VIAL/SYRINGE SC SCH (22:35)
[2024-12-27 23:23] VITALS: BP 195/93; TEMP 97.4; O2SAT 96
[2024-12-28] VITALS (7 sets, daily range): BP systolic 158–198; BP diastolic 74–106; TEMP 97.6–98.6; O2SAT 97–99
[2024-12-28 05:43] LABS: PLATELET COUNT, AUTOMATED 275 10^3/uL (150-450)
[2024-12-28 06:14] LABS: ALT/SGPT 30.0 U/L (7.0-40); AST/SGOT 12.0 U/L (<34); CALCIUM LEVEL 10.1 MG/DL (8.5-10.1); CARBON DIOXIDE LEVEL 24.0 MMOL/L (20-31); CHLORIDE LEVEL 98.0 MMOL/L (98-107); CREATININE FOR GFR 11.33 MG/DL (0.70-1.30); GLOMERULAR FILTRATION RATE 5.4 (>60); POTASSIUM SERUM 3.5 MMOL/L (3.5-5.1); SODIUM LEVEL 137.0 MMOL/L (136-145)
[2024-12-28 07:04] LABS: APPEARANCE, BODY FLUID CLEAR (CLEAR); PERITONEAL DIALYSATE FL COLOR PALE YELLOW (COLORLESS); SOURCE, BODY FLUID PERITONEAL DIALYSATE
[2024-12-28] MEDS: FUROSEMIDE 20 MG TAB PO SCH (09:37)
[2024-12-28] MEDS: amLODIPine 10 MG TAB PO SCH (09:39)
[2024-12-28] MEDS: ACETAMINOPHEN 325 MG TAB PO PRN (10:17)
[2024-12-28] MEDS: ONDANSETRON 4MG ORAL DISINTEGRATING TAB SL PRN (11:19)
[2024-12-28] MEDS: MOM 30 ML SUSPENSION UDC PO SCH (19:07)
[2024-12-29 00:32] VITALS: BP 153/74; TEMP 98; O2SAT 96
[2024-12-29 04:25] VITALS: BP 156/76; TEMP 98.3; O2SAT 97
[2024-12-29 04:38] LABS: PLATELET COUNT, AUTOMATED 325 10^3/uL (150-450)
[2024-12-29 05:02] LABS: ALT/SGPT 32.0 U/L (7.0-40); AST/SGOT 14.0 U/L (<34); CALCIUM LEVEL 10.3 MG/DL (8.5-10.1); CARBON DIOXIDE LEVEL 28.0 MMOL/L (20-31); CHLORIDE LEVEL 96.0 MMOL/L (98-107); CREATININE FOR GFR 10.45 MG/DL (0.70-1.30); GLOMERULAR FILTRATION RATE 6.0 (>60); POTASSIUM SERUM 3.5 MMOL/L (3.5-5.1); SODIUM LEVEL 139.0 MMOL/L (136-145)
[2024-12-29] MEDS: CALCIUM CARBONATE 500 MG CHEW U/D PO PRN (05:30)
[2024-12-29 06:50] LABS: APPEARANCE, BODY FLUID CLEAR (CLEAR); PERITONEAL DIALYSATE FL COLOR COLORLESS (COLORLESS); SOURCE, BODY FLUID PERITONEAL DIALYSATE
[2024-12-29 07:42] VITALS: BP 160/92; TEMP 98; O2SAT 96
[2024-12-29] MEDS: POTASSIUM CHLORIDE 10MEQ SR TABLET PO SCH (09:45)
[2024-12-29] MEDS: VANCOMYCIN 1000MG/20ML VIAL IP ONE (14:02)
[2024-12-29 15:48] VITALS: BP 140/78; TEMP 98.1; O2SAT 97
[2024-12-29] MEDS ORDERED: CARV25TA PO (16:25)
[2024-12-29 16:36] VITALS: BP 140/78
== END 2024-12-29 17:50 | disposition home or self-care (01) | DRG 371 ==
LOC: M ED 21:43 → M ED INP 12-27 12:45 → M PCU 12-27 14:49
PROVIDERS: ADMIT Internal Medicine; ATTEND Internal Medicine
DX: K65.0 Generalized (acute) peritonitis (principal); N18.6 End stage renal disease; I12.0 Hypertensive chronic kidney disease with stage 5 chronic kidney disease or end stage renal disease; T85.71XA Infection and inflammatory reaction due to peritoneal dialysis catheter, initial encounter; N02.B9 Other recurrent and persistent immunoglobulin A nephropathy; E78.5 Hyperlipidemia, unspecified; K21.9 Gastro-esophageal reflux disease without esophagitis; E21.1 Secondary hyperparathyroidism, not elsewhere classified; I16.0 Hypertensive urgency; Z87.891 Personal history of nicotine dependence; Z79.899 Other long term (current) drug therapy; Z88.2 Allergy status to sulfonamides; K59.00 Constipation, unspecified; Y84.6 Urinary catheterization as the cause of abnormal reaction of the patient, or of later complication, without mention of misadventure at the time of the procedure

== ENCOUNTER → 2025-03-04 | Outpatient (CLI) | payer MEDICARE ==
[2025-03-04 18:45] LABS: BASO # 0.1 10^3/uL (0.0-0.2); BASO % 0.8 % (0.0-1.0); EOS # 0.2 10^3/uL (0.0-0.5); EOS % 3.3 % (0.0-3.0); LYMPH # 1.4 10^3/uL (1.5-5.0); LYMPH % 23.3 % (24.0-44.0); MONO # 0.5 10^3/uL (0.0-0.8); MONO % 8.4 % (2.0-8.0); NEUTROPHILS # 3.9 10^3/uL (1.5-8.5); NEUTROPHILS % 64.0 % (36.0-66.0); PLATELET COUNT, AUTOMATED 292 10^3/uL (150-450)
[2025-03-04 19:47] LABS: ALT/SGPT 56.0 U/L (7.0-40); AST/SGOT 29.0 U/L (<34); CALCIUM LEVEL 9.8 MG/DL (8.5-10.1); CARBON DIOXIDE LEVEL 26.0 MMOL/L (20-31); CHLORIDE LEVEL 103.0 MMOL/L (98-107); CHOLESTEROL LEVEL 184.0 MG/DL (<200); CHOLESTEROL RISK RATIO 4.43 (<5); CREATININE FOR GFR 9.72 MG/DL (0.70-1.30); FREE T4 1.34 NG/DL (0.89-1.76); GLOMERULAR FILTRATION RATE 6.5 (>60); LDL CHOLESTEROL 121.5 MG/DL (<100); NON-HDL-C 142.5 MG/DL; POTASSIUM SERUM 4.1 MMOL/L (3.5-5.1); SODIUM LEVEL 141.0 MMOL/L (136-145); TOTAL 25(OH) VITAMIN D 22.8 NG/ML (20.0-100.0); TRIGLYCERIDES LEVEL 105.0 MG/DL (<150)
[2025-03-04 19:57] LABS: ESTIMATED AVERAGE GLUCOSE 88.0 MG/DL (60-110)
== END ==
LOC: M PLALAB 15:50
PROVIDERS: ATTEND Nurse Practitioner Family
DX: R73.9 Hyperglycemia, unspecified (principal); E55.9 Vitamin D deficiency, unspecified; E78.2 Mixed hyperlipidemia